=== PATIENT | female | born 1950 | race Caucasian/White ===

== ENCOUNTER → 2017-01-02 | Outpatient (CLI) | payer BC ==
[~2017-01-02] MED LIST: ALPPOPS5 OPR; BROM0.07; BUPR200T2 PO; CHOL100010 PO; DIFL0.0519; EMOL1CRE PO; GATI1SOL2; METR0.754 TOP; SUMA50TA15 PO
== END | disposition home or self-care (01) ==
LOC: C.RDSM 08:57
PROVIDERS: ATTEND Physical Medicine & Rehabilitation Sports Medicine
DX: M79.644 Pain in right finger(s) (principal)

== ENCOUNTER → 2017-04-25 | Day surgery (SDC) | payer BC ==
[2017-03-13 10:29] VITALS: Ht 160 cm; Wt 63.6 kg
[~2017-04-25] VITALS: Ht 160 cm; Wt 63.6 kg
[~2017-04-25] MED LIST changes: +500ML BSS 0.3ML EPI 1:1000PF IRRIG ONE; +ACETAMINOPHEN 325 MG TAB PO PRN; +AMVISC PLUS 0.8ML SYRINGE INT OCU ONE; +ATROPINE SULFATE 0.1 MG/ML 5ML SYR IV PRN; +BSS FLUSH ONE; -CHOL100010 PO; -EMOL1CRE PO; +EpINEphrine INJ 1MG/ML AMP 1 MG/ML AMP ONE; +LACTATED RINGER'S 1000ML 500 ML IV SCH; +LIDOCAINE 3.5% OPH GEL PER APPLICATION CHARGE ONE; +LIDOCAINE HCL 1% MPF 2 ML VIAL ONE; -METR0.754 TOP; +MIDAZOLAM HCL 1 MG/ML 2ML VIAL ONE; +OCUCOAT 1 ML SOLN IO ONE; +POVIDONE-IODINE OP SOLN 30 ML BTL ONE; +PROPARACAINE 0.5% OP SOLN PER DROP CHARGE OPL SCH; +TOBRAMYCIN/DEXAMETHASONE OPH OINT PER APPLN CHARGE ONE
[2017-04-25] MEDS: PHENYLEPHRINE HCL 2.5% OP SOLN PER DROP CHARGE OPL SCH ×2 (06:40→06:46)
[2017-04-25] MEDS: TROPICAMIDE 1% OP SOLN PER DROP CHARGE OPL SCH ×2 (06:41→06:47)
[2017-04-25] MEDS: CYCLOPENTOLATE HCL 1% OP SOLN PER DROP CHARGE OPL SCH ×2 (06:42→06:48)
[2017-04-25] MEDS: KETOROLAC 0.5% OP SOLN PER DROP CHARGE OPL SCH ×2 (06:44→06:50)
[2017-04-25] MEDS: GATIFLOXACIN OP SOLN PER DROP CHARGE OPL SCH ×2 (06:45→06:54)
--- NOTE | 2017-04-25 06:59 | History & Physical Bridge - [place] ---
H&P Re-Evaluation Bridge Note: I have examined the patient, reviewed the History & Physical and in the interval since the performance of the History & Physical I have noted the following changes of clinical significance: No changes noted
--- NOTE | 2017-04-25 07:47 | Discharge Instructions-SurgCtr ---
Discharge Instructions Date of Service Apr 25, 2017. Visit Reason for Visit: Left Cataract Discharge Discharge Diagnosis / Problem: cataract Discharge Goals Goal(s): Improve function Activity Recommendations Activity Limitations: per Instructions/Follow-up section Anesthesia . Post Anesthesia Instructions: If you have had General Anesthesia or IV Sedation: * Do not drive today. * Resume driving when surgeon permits. * Do not make important decisions or sign legal documents today. * Call surgeon for: 1. Temperature elevations greater than 101 degrees F. 2. Uncontrollable pain. 3. Excessive bleeding. 4. Persistent nausea and vomiting. 5. Medication intolerance (nausea, vomiting or rash). * For nausea and vomiting use only clear liquids such as: tea, soda, bouillon until nausea subsides, then gradually increase diet as tolerated. * If you have any concerns or questions, call your surgeon's office. If physician is unavailable and it is an emergency, call 911 or go to the nearest emergency room. . Instructions / Follow-Up Instructions / Follow-Up ACTIVITY RECOMMENDATIONS: * No strenuous lifting, jogging or running for 4 days * No swimming or yard work for 1 week. * Limited bending is permitted, such as putting on shoes. RETURN TO SCHOOL/WORK: No work until seen by physician in office. MEDICATIONS: Resume previous medications unless instructed otherwise by your surgeon. This includes eye drops for glaucoma. Zymaxid/Gatifloxacin (morales cap) - one drop every 2 hours until bedtime Nevanac/Ilevro/Prolensa/Ketorolac (hall cap) - one drop every 4 hours until bedtime Prednisolone/Durezol (white/pink cap, SHAKE WELL) - one drop every 2 hours until bedtime Starting tomorrow - all 3 drops every 4 hours until seen in the office Optive drops - as needed for discomfort SPECIAL CARE INSTRUCTIONS: * Wear eyeshield when sleeping, for four nights. * You may wear your own glasses or sunglasses while awake. * You may read or watch TV * You may shower and wash your face, but be gentle around the eye and pat dry. * Blurry vision and mild irritation are normal. * Call office if pain is more severe or vision becomes dark at . FOLLOW UP VISIT: Follow-up with Dr Yepez tomorrow. Diet Recommendations Home Diet: resume previous diet Procedures Procedures Performed: Left Cataract Phacoemulsification With Intraocular Lens Implant Pending Studies Studies pending at discharge: no Medical Emergencies . Who to Call and When: Medical Emergencies: If at any time you feel your situation is an emergency, please call 911 immediately. . Non-Emergent Contact Non-Emergency issues call your: Interactive Account Manager . . "Provider Documentation" section prepared by Artemio Yepez. .
--- NOTE | 2017-04-25 07:48 | [facility] Operative Report ---
Operative Report Date of Service Apr 25, 2017. Operative Report 1. PREOPERATIVE DIAGNOSIS: Cataract of the left eye. 2. POSTOPERATIVE DIAGNOSIS: Same. 3. PROCEDURE: Phacoemulsification with intraocular lens implantation of the left eye. SURGEON: Dr. Artemio Yepez. ANESTHESIA: Topical Lidocaine gel, 1% Non- Preserved intracameral Lidocaine, and monitored intravenous sedation. INDICATIONS FOR THE PROCEDURE: The patient is a 66 - year-old female with a history of cataract of the left eye causing significant visual impairment. The details of the proposed procedure were explained to the patient who asked appropriate questions and following discussion of all risks, benefits and alternatives agreed to have the procedure done. 4. OPERATION AND FINDINGS: DESCRIPTION OF PROCEDURE: After informed consent was obtained, the patient was brought to the Operating Room at the [facility]. The patient was placed in a supine position and then the left eye was prepped and draped in the usual sterile fashion for intraocular surgery. A drop of topical Lidocaine gel was placed in the operative eye. A wire lid speculum was then placed in the fornices. A corneal paracentesis was then created temporally. The Non-Preserved Lidocaine was then instilled into the anterior chamber. The anterior chamber was then pressurized with viscoelastic. A 2.0 mm clear corneal incision was then created temporally. A cystotome was inserted into the anterior chamber and used to create a tear in the anterior lens capsule. This capsular tear was then used to create a small flap and the flap was dragged in a counterclockwise direction in order to create a continuous curvilinear capsulorrhexis. Hydrodissection was accomplished with balanced salt solution. Phacoemulsification of the lens nucleus was then performed in a standard [id number]-vniddis technique. The phaco time was 19 seconds with an average power of 2 %. The remaining cortical material was removed using irrigation aspiration. The capsular bag was then filled with viscoelastic. A Bausch [employer] Lomb MI60L +19.0 diopters lens was then loaded into the injector and injected into the capsular bag. The remaining viscoelastic was removed with the irrigation aspiration handpiece. The wound was hydrated and then checked and found to be watertight. The intraocular pressure was checked and found to be adequate. The wire lid speculum was removed and the patient's face was cleaned and dried. TobraDex ointment was placed in the inferior fornix. The patient was discharged to the Recovery Room having tolerated the procedure well. There were no complications. The patient will be seen tomorrow in the office for follow-up. I attest to the content of the Intraoperative Record and any orders documented therein. Any exceptions are noted below.
--- NOTE | 2017-04-25 07:59 | Anesthesia Progress Nt - [facility] ---
Anesthesia Post Op Note Date & Time Apr 25, 2017 at 07:58 Vital Signs Pain Intensity: 0 Vital Signs Past 12 Hours Date Time Temp Pulse Resp B/P (MAP) Pulse Ox O2 Delivery O2 Flow Rate FiO2 04/25/17 07:50 36.3 62 16 129/83 (98) 99 Room Air 04/25/17 06:31 36.3 62 16 140/78 (98) 96 Room Air Notes Mental Status: alert / awake / arousable, participated in evaluation Pt Amnestic to Procedure: Yes Nausea / Vomiting: adequately controlled Pain: adequately controlled Airway Patency, RR, SpO2: stable & adequate BP & HR: stable & adequate Hydration State: stable & adequate Anesthetic Complications: no major complications apparent
[2017-04-25 08:15] VITALS: BP 129/83; PULSE 59; O2SAT 97
== END | disposition home or self-care (01) ==
LOC: X.SURG 06:12
PROVIDERS: ATTEND Ophthalmology
DX: H26.9 Unspecified cataract (principal)

== ENCOUNTER → 2017-10-17 | Day surgery (SDC) | payer BC, OTHER ==
[2017-10-03 14:14] VITALS: Ht 160 cm; Wt 63.6 kg
[~2017-10-17] VITALS: Ht 160 cm; Wt 63.6 kg
[~2017-10-17] MED LIST changes: -500ML BSS 0.3ML EPI 1:1000PF IRRIG ONE; -ACETAMINOPHEN 325 MG TAB PO PRN; +ALPPOPS5 OPB; -ALPPOPS5 OPR; -AMVISC PLUS 0.8ML SYRINGE INT OCU ONE; +ASPI-391 PO; -BROM0.07; -BSS FLUSH ONE; +BUPIVACAINE 0.5 % 5 MG/1 ML MPF 30ML VIAL ONE; +CEFAZOLIN 2000MG IV PUSH 10 ML IV SCH; +DEXAMETHASONE SOD INJ 4 MG/ML VIAL ONE; -DIFL0.0519; +EpHEDrine SULFATE INJ 50 MG/ML AMP IV PRN; -EpINEphrine INJ 1MG/ML AMP 1 MG/ML AMP ONE; +FENTANYL CITRATE INJ 50 MCG/1 ML 2 ML VIAL IV PRN; +FENTANYL CITRATE INJ 50 MCG/1 ML 2 ML VIAL ONE; -GATI1SOL2; +KETOROLAC TROMETHAMINE 30 MG/ML VIAL IV. PRN; +LACTATED RINGER'S 1000ML 1,000 ML IV SCH; -LACTATED RINGER'S 1000ML 500 ML IV SCH; -LIDOCAINE 3.5% OPH GEL PER APPLICATION CHARGE ONE; -LIDOCAINE HCL 1% MPF 2 ML VIAL ONE; +LIDOCAINE HCL 2% 2 ML VIAL (20MG/ML) ONE; -OCUCOAT 1 ML SOLN IO ONE; +ONDANSETRON INJ 2 MG/ML 2 ML VIAL IV PRN; +ONDANSETRON INJ 2 MG/ML 2 ML VIAL ONE; +OXYCODONE/ACETAMINOPHEN 5-325 TAB PO PRN; -POVIDONE-IODINE OP SOLN 30 ML BTL ONE; -PROPARACAINE 0.5% OP SOLN PER DROP CHARGE OPL SCH; +PROPOFOL IV EMULSION 10 MG/ML 20 ML VIAL IV ONE; +ROPIVACAINE 0.5% 5 MG/ML 30 ML VIAL ONE; +SODIUM CHLORIDE 0.9% 1000ML 1,000 ML IV SCH; +SODIUM CHLORIDE 0.9% INJ 10 ML VIAL ONE; -TOBRAMYCIN/DEXAMETHASONE OPH OINT PER APPLN CHARGE ONE
--- NOTE | 2017-10-17 06:51 | Discharge Instructions ---
Discharge Instructions Date of Service Oct 17, 2017. Visit Reason for Visit: Right Thumb Basal Joint Arthritis Discharge Discharge Diagnosis / Problem: same Discharge Goals Goal(s): Decrease discomfort, Improve function Medications Stopped Medications Name(s): na Restart Stopped Medication(s): use all scripts as directed Activity Recommendations Activity Limitations: as noted below Lifting Limitations: until after follow-up appointment Exercise/Sports Limitations: until after follow-up appointment May Resume Sexual Activity: after follow-up appointment Shower/Bathe: keep incision dry Driving or Machine Use: Anesthesia . Post Anesthesia Instructions: If you have had General Anesthesia or IV Sedation: * Do not drive today. * Resume driving when surgeon permits. * Do not make important decisions or sign legal documents today. * Call surgeon for: 1. Temperature elevations greater than 101 degrees F. 2. Uncontrollable pain. 3. Excessive bleeding. 4. Persistent nausea and vomiting. 5. Medication intolerance (nausea, vomiting or rash). * For nausea and vomiting use only clear liquids such as: tea, soda, bouillon until nausea subsides, then gradually increase diet as tolerated. * If you have any concerns or questions, call your surgeon's office. If physician is unavailable and it is an emergency, call 911 or go to the nearest emergency room. . Instructions / Follow-Up Instructions / Follow-Up DIET: * Resume previous diet. MEDICATIONS: * Please take your prescriptions as instructed at your pre-op appointment and/ or see medication discharge instructions listed above. * If concerns develop, call your physician's office at . SPECIAL CARE INSTRUCTIONS: * Ice/Elevate as instructed. * Keep dressing clean, dry, intact. * Your surgical extremity may be discolored due to prepping agents used on the skin. A bluish-green tint is a normal variant and should not cause alarm. Call your doctor at [phone] if: * Temperature above 101 degrees * Pain not relieved by pain medicine ordered * There is increased drainage or redness from any incision * You have any unanswered questions, problems or concerns. FOLLOW UP VISIT: * If not already scheduled, please call the office at to schedule a follow-up appointment. Diet Recommendations Recommended Home Diet: resume previous diet Procedures Procedures Performed: see op note Pending Studies Studies pending at discharge: no Medical Emergencies . Who to Call and When: Medical Emergencies: If at any time you feel your situation is an emergency, please call 911 immediately. . Non-Emergent Contact Non-Emergency issues call your: Specialist Call Non-Emergent contact if: temperature is above 101.5, wound has increased drainage, wound has increased redness . . "Provider Documentation" section prepared by Ted Townsend. .
--- NOTE | 2017-10-17 08:11 | [facility] Post Operative Brief Note ---
Immediate Operative Summary Operative Date Oct 17, 2017. Pre-Operative Diagnosis Right thumb basal joint arthritis Post-Operative Diagnosis Same as preop Procedure(s) Performed Right Thumb Open Basal Joint Reconstruction With Flexor Carpi Radialis Autograft (Ligament Reconstruction Tendon Interposition) Surgeon Dr. Townsend Office Support Associate Surgeon(s) Golden Bunch PA-C Estimated Blood Loss Trace Findings djd /instability basal joint Fluids (cc crystalloids) 800cc Specimens None Drains none Anesthesia LMA/block Complication(s) None Disposition Recovery Room / PACU
--- NOTE | 2017-10-17 08:22 | [facility] Operative Report ---
Operative Report Operative Date Oct 17, 2017. Pre-Operative Diagnosis Right thumb basal joint arthritis Post-Operative Diagnosis Right thumb Same as preop Procedure(s) Performed Right Thumb Open Basal Joint Reconstruction With Flexor Carpi Radialis Autograft (Ligament Reconstruction Tendon Interposition) Surgeon Dr. Townsend Communication Center Operator Surgeon(s) Golden Bunch PA-C Estimated Blood Loss Trace Findings Right thumb basal joint arthritis Fluids (cc crystalloids) 800cc Specimens None Drains none Complication(s) None Disposition Recovery Room / PACU Indications This 66-year-old white female presented to the office complaints of right thumb pain that was worse with use. She had tried conservative care measures including activity modification, oral anti-inflammatories, and bracing without success. She elected to proceed with surgical intervention after being educated about potential risks and outcomes. Preoperative imaging was obtained. Description of Procedure Patient was administered a regional block and then taken to the operating room where she was given general anesthesia. She was prepped and draped in usual sterile fashion. Please see Dr. Townsend's operative report for specifics of the procedure. I was present for the entire case from initial patient positioning through final wound closure. Assistance was provided in tissue traction, hemostasis, hardware placement, final wound closure, and final splinting. Patient was taken to the recovery room in satisfactory condition. I attest to the content of the Intraoperative Record and any orders documented therein. Any exceptions are noted below.
--- NOTE | 2017-10-17 08:50 | OPERATIVE REPORT ---
DATE OF OPERATION: 10/17/2017 SURGEON: Ted Townsend MD. ONLINE MARKETING SPECIALIST: Golden Bunch PA-C. No resident or fellow available. PREOPERATIVE DIAGNOSIS: Joint instability and arthritis, right thumb. POSTOPERATIVE DIAGNOSIS: Same. OPERATION PERFORMED: Ligament reconstruction, tendon interposition, basal joint reconstruction of carpometacarpal arthritis of right thumb, flexor carpi radialis autograft. PERIOPERATIVE SITUATION: Medically cleared female with intractable thumb pain, has failed conservative management. X-ray reveals instability and degenerative disease, wants to proceed with surgical reconstruction. Consent was obtained. Risks as identified in the consent. The patient understands. DESCRIPTION OF PROCEDURE: The patient was properly identified, site verified, consent verified, 2 grams of Ancef confirmed as being given. The right upper extremity was prepped and draped in usual routine fashion. Tourniquet was inflated to 250 mmHg after exsanguination of the limb with a rubber Esmarch bandage for a total of 49 minutes. A Zamora-type incision was made about the thumb. Care was taken to protect the nerves. The joint was then entered and the trapezium subperiosteally dissected. It was then removed. Care taken to protect the FCR. The base of the first metacarpal was then opened with a drill and enlarged with curettes. The FCR was then harvested through 2 separate small incisions over the proximal volar forearm. These areas were then cleaned once the tendon was delivered into the thumb wound and closed with horizontal mattress 3-0 nylon suture. The graft was then trimmed and then tagged with a #2 Vicryl. An Arthrex small screw and anchor was placed in the trapezoid and then the ligament reconstruction carried out as it was passed through. The base of the first metacarpal looped back down to the trapezoid. It was tied with the stitch and the ligament was reconstructed. The remaining graft was then anchovied and then tied into the base of the wound and the capsule closed over that with the stitch that was used for the anchor as well an additional stitch in the tendon. An excellent watertight repair was obtained. The thumb sat in a very natural position. This wound was irrigated prior to passing the graft and then once again after the graft was tied and the capsule closed, the skin was then closed with a running 3-0 nylon suture. A 0.062 K-wire was then placed under fluoroscopic control to hold the thumb in appropriate position, and the pin was then cut. A pinball was placed and then the wounds were then dressed with Xeroform, 4 x 4 gauze, sterile Shaun, Webril, and 3-inch fiberglass splints. The patient was transferred to the recovery room in satisfactory condition having tolerated the procedure well. Estimated blood loss was trace. Crystalloid 800 mL. No DVT prophylaxis. I attest to the content of the Intraoperative Record and any orders documented therein. Any exception s are noted below.
[2017-10-17 09:16] VITALS: TEMP 36.2
--- NOTE | 2017-10-17 09:49 | Anesthesiology Progress Note ---
Anesthesia Post Op Note Date & Time Oct 17, 2017 at 09:48 Vital Signs Pain Intensity: 0 Vital Signs Past 12 Hours Date Time Temp Pulse Resp B/P (MAP) Pulse Ox O2 Delivery O2 Flow Rate FiO2 10/17/17 09:16 36.2 69 16 139/85 (103) 99 Room Air 10/17/17 09:01 69 20 10/17/17 09:01 69 20 96 10/17/17 09:00 152/91 10/17/17 09:00 36.6 68 14 152/91 96 Room Air 10/17/17 08:56 70 11 95 10/17/17 08:56 71 11 10/17/17 08:55 143/85 10/17/17 08:51 74 22 135/76 95 10/17/17 08:51 75 22 10/17/17 08:46 72 15 10/17/17 08:46 72 15 95 10/17/17 08:45 136/85 10/17/17 08:41 71 12 124/73 99 10/17/17 08:41 71 12 10/17/17 08:36 71 11 10/17/17 08:36 70 11 99 10/17/17 08:35 136/102 10/17/17 08:31 73 13 99 10/17/17 08:31 74 13 10/17/17 08:30 139/73 10/17/17 08:26 71 14 10/17/17 08:26 71 14 99 10/17/17 08:25 124/74 10/17/17 08:22 119/84 10/17/17 08:21 72 18 10/17/17 08:21 72 18 98 10/17/17 08:19 36.0 72 16 132/77 96 Mask 4 10/17/17 07:01 0 10/17/17 07:00 139/87 10/17/17 06:56 67 10/17/17 06:56 66 4 100 10/17/17 06:55 76 0 143/90 100 10/17/17 06:55 76 0 143/90 100 10/17/17 06:55 76 10/17/17 06:55 76 10/17/17 06:54 159/102 10/17/17 06:54 159/102 10/17/17 06:50 68 0 1/16/18 06:50 68 0 10/17/17 06:31 36.6 71 16 147/82 (103) 95 Room Air 10/17/17 06:30 68 147/82 95 10/17/17 06:30 68 147/82 95 10/17/17 06:30 68 10/17/17 06:30 68 Notes Mental Status: alert / awake / arousable, participated in evaluation Pt Amnestic to Procedure: Yes Nausea / Vomiting: adequately controlled Pain: adequately controlled Airway Patency, RR, SpO2: stable & adequate BP & HR: stable & adequate Hydration State: stable & adequate Anesthetic Complications: no major complications apparent Anesthetic Complications: block functioning well
[2017-10-17 09:50] VITALS: BP 136/75; PULSE 70; O2SAT 99
== END | disposition home or self-care (01) ==
LOC: X.SURG 06:11
PROVIDERS: ATTEND Physical Medicine & Rehabilitation Sports Medicine
DX: M25.341 Other instability, right hand (principal); M19.041 Primary osteoarthritis, right hand; Z88.2 Allergy status to sulfonamides; Z90.89 Acquired absence of other organs; Z98.890 Other specified postprocedural states; Z98.41 Cataract extraction status, right eye; Z96.642 Presence of left artificial hip joint; Z80.9 Family history of malignant neoplasm, unspecified; Z82.49 Family history of ischemic heart disease and other diseases of the circulatory system

== ENCOUNTER → 2017-11-13 | Outpatient (CLI) | payer OTHER ==
[~2017-11-13] MED LIST changes: -ATROPINE SULFATE 0.1 MG/ML 5ML SYR IV PRN; -BUPIVACAINE 0.5 % 5 MG/1 ML MPF 30ML VIAL ONE; -CEFAZOLIN 2000MG IV PUSH 10 ML IV SCH; -DEXAMETHASONE SOD INJ 4 MG/ML VIAL ONE; -EpHEDrine SULFATE INJ 50 MG/ML AMP IV PRN; -FENTANYL CITRATE INJ 50 MCG/1 ML 2 ML VIAL IV PRN; -FENTANYL CITRATE INJ 50 MCG/1 ML 2 ML VIAL ONE; -KETOROLAC TROMETHAMINE 30 MG/ML VIAL IV. PRN; -LACTATED RINGER'S 1000ML 1,000 ML IV SCH; -LIDOCAINE HCL 2% 2 ML VIAL (20MG/ML) ONE; -MIDAZOLAM HCL 1 MG/ML 2ML VIAL ONE; -ONDANSETRON INJ 2 MG/ML 2 ML VIAL IV PRN; -ONDANSETRON INJ 2 MG/ML 2 ML VIAL ONE; -OXYCODONE/ACETAMINOPHEN 5-325 TAB PO PRN; -PROPOFOL IV EMULSION 10 MG/ML 20 ML VIAL IV ONE; -ROPIVACAINE 0.5% 5 MG/ML 30 ML VIAL ONE; -SODIUM CHLORIDE 0.9% 1000ML 1,000 ML IV SCH; -SODIUM CHLORIDE 0.9% INJ 10 ML VIAL ONE
== END | disposition home or self-care (01) ==
LOC: C.RDSM 09:00
PROVIDERS: ATTEND Physical Medicine & Rehabilitation Sports Medicine
DX: M18.11 Unilateral primary osteoarthritis of first carpometacarpal joint, right hand (principal)

== ENCOUNTER → 2017-11-27 | Outpatient (CLI) | payer BC, OTHER ==
--- NOTE | 2017-11-27 10:44 | DIAGNOSTIC IMAGING REPORT ---
L PELVIS UNILATERAL HIP 1 VIEW CLINICAL HISTORY: 67 years-old Female presenting with H/O LEFT ARTIFICIAL JOINT. TECHNIQUE: Single frontal view of the pelvis and frog-leg lateral view of the left hip were obtained. COMPARISON: 07/25/2016. FINDINGS: Postsurgical changes of total left hip arthroplasty again noted. No apparent hardware complication. No periprosthetic fracture. No malalignment. Remainder of the bony pelvis and right hip grossly normal. No advanced degenerative change of the right hip. IMPRESSION: Postsurgical changes of total left hip arthroplasty without complication. No acute osseous injury. Electronically signed by: Prashanth Menjivar M.D. 11/27/2017 10:42 AM Dictated Date/Time: 11/27/2017 10:23 AM
== END | disposition home or self-care (01) ==
LOC: C.RDSM 07:00
PROVIDERS: ATTEND Physician Assistant
DX: Z96.649 Presence of unspecified artificial hip joint (principal)